=== PATIENT | male | born 1990 | race Two or more races ===

== ENCOUNTER 2024-04-02 16:54 | Emergency (ER) | payer OTHER ==
[~2024-04-02] VITALS: Ht 182.9 cm; Wt 90.7 kg
[2024-04-02 17:02] VITALS: BP 151/86; TEMP 98.8
[2024-04-02] MEDS ORDERED: SULF1TAB48 PO (17:31)
[2024-04-02] MEDS ORDERED: CEPH500C2 PO (17:31)
[2024-04-02] MEDS ORDERED: CEPHALEXIN MONOHYDRATE 500 MG CAPSULE PO ONE (17:37)
[2024-04-02] MEDS ORDERED: SULFAMETH/TRIMETH 800/160 MG 1 UDTAB TABLET ONE (17:38)
[2024-04-02] MEDS: CEPHALEXIN MONOHYDRATE 500 MG CAPSULE PO ONE (17:40)
[2024-04-02] MEDS: BACITRACIN ZINC OINT PACKET 1 EA PACKET TP ONE (17:40)
[2024-04-02] MEDS: SULFAMETH/TRIMETH 800/160 MG 1 UDTAB TABLET PO ONE (17:40)
[2024-04-02 18:19] VITALS: O2SAT 100
== END 2024-04-02 18:21 | disposition home or self-care (01) ==
LOC: ER 16:58
DX: S80.812A Abrasion, left lower leg, initial encounter (principal); L03.116 Cellulitis of left lower limb; V49.69XA Unspecified car occupant injured in collision with other motor vehicles in traffic accident, initial encounter; Y93.72 Activity, wrestling; Y92.488 Other paved roadways as the place of occurrence of the external cause; Y99.8 Other external cause status